=== PATIENT | female | born 1990 | race African-American/Black ===

== ENCOUNTER 2019-12-21 10:40 | Outpatient (CLI) | payer OTHER, SELFPAY ==
[2019-12-21 12:27] LABS: Hematocrit 33.9 % (37.0-47.0)
[2019-12-21 14:33] LABS: Glucose 1 Hour PP 50gm Dose 104 mg/dL
[2019-12-21 15:18] LABS: HIV 1/2 Ab P24 Ag Result Negative (Negative)
== END 2019-12-21 10:41 | disposition home or self-care (01) ==
PROVIDERS: PCP Physician Assistant; Visit Provider Obstetrics & Gynecology
DX: Z34.92 Encounter for supervision of normal pregnancy, unspecified, second trimester (principal); Z3A.00 Weeks of gestation of pregnancy not specified
CPT/HCPCS: 36415; 82947; 85014; 85018; 86703; G0432